=== PATIENT | female | born 1960 | race Caucasian/White ===

== ENCOUNTER 2016-07-16 18:01 | Emergency (ER) | payer OTHER ==
--- NOTE | 2016-07-16 18:04 | EDPHY ---
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 The patient was speaking and skiing at [place] with a group and began to feel lightheaded like she was going to have a syncopal event. Her dizziness improved when she put her head down, but would return when standing or sitting up. She is not on control or hormonal agents. No recent vomiting or diarrhea. No blood in her stool. No previous similar events. She denies chest pain or shortness of breath. No recent trauma, head or otherwise. She denies headache. She feels better now. REVIEW OF SYSTEMS: A ten point review of systems was performed and is negative with the exception of the items mentioned in the HPI. Source: Patient Exam Limitations: No limitations - Medical/Surgical History Hx Asthma: No Hx Chronic Respiratory Disease: No Hx Diabetes: No Hx Cardiac Disease: No Hx Renal Disease: No Hx Alcoholism: No Hx HIV/AIDS: No Other PMH: Negative except for ORIF leg fracture. 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 . - Physical Exam Exam: General Appearance: Alert. Vital signs reviewed. BP: 157/107 Eyes: Pupils equal and round, no conjunctival injection, no discharge. Anicteric. ENT, Mouth: Mucous membranes are moist, no oropharyngeal erythema or edema. Neck: No lymphadenopathy, supple. No carotid bruits. Respiratory: Lungs are clear to auscultation; no wheezes, rales, or rhonchi. Cardiovascular: Regular rate and rhythm; no murmur, rub, or gallop. Gastrointestinal: Abdomen is soft and nontender, no masses or organomegaly, bowel sounds normal. Skin: Warm and dry, no rashes on exposed skin, normal color. Back: Nontender to palpation over the thoracolumbar spine. No CVAT. Extremities: No lower extremity edema, no calf tenderness or swelling. Neurological: Alert and oriented. Moving all four extremities easily and equally. Cranial nerves II through XII are examined and are intact (visual acuity not tested). Strength is 5 over 5 bilaterally with testing of all major motor groups. Sensation is intact to light touch over all 4 extremities. Deep tendon reflexes are 2+ in the biceps and knees bilaterally. [id number] is performed accurately. Psychiatric: Normal affect. Constitutional: Initial Vital Signs Temperature (C) 36.9 C 07/16/16 18:11 Heart Rate 74 07/16/16 18:11 Respiratory Rate 16 07/16/16 18:11 Blood Pressure 173/106 H 07/16/16 18:11 O2 Sat (%) 94 07/16/16 18:11 O2 Delivery Mode Room Air Allergies/Adverse Reactions: No Known Allergies Allergy (Unverified 07/16/16 18:15) Medical Decision Making - Diagnostics EKG Interpretation: The 12 lead EKG was interpreted by myself. See hard copy and/or "tracemaster" electronic copy for interpretation: Sinus rhythm. No ischemic changes. Normal intervals. ED Course/Re-evaluation: Plan for EKG and orthostatic vitals. D-dimer and Troponin are pending. Healthy active 56 year old female with pre-syncope. She is hypertensive on arrival in ED, with no known history of hypertension. Normal neurologic exam. She feels better on arrival. Orthostatic VS are normal. CBC, chemistries, troponin, and d-dimer all normal (except for CO2 of 21). Repeat BP 148/102 and BP at discharge 148/86. No signs of end organ damage. She is advised to have her blood pressure checked by PCP at [place]. FU strongly encouraged. She no longer feels lightheaded and I feel that she can safely return home. Danger signs that should prompt immediate re-evaluation were reviewed. Differential Diagnosis: I considered a ddx of volume depletion/blood loss, vasovagal syncope/pre-syncope , cardiac arrhythmia, and altitude sickness (unlikely as she is acclimated to high altitude). - Data Points Laboratory Results: Laboratory Results 07/16/16 18:40 07/16/16 18:40 Departure - Departure Disposition: Home, Routine, Self-Care Clinical Impression: Lightheaded Condition: Good Instructions: Lightheadedness (ED) Additional Instructions: Your blood pressure today was elevated. Please followup with your primary care physician to have this rechecked. Drink plenty of fluids. Return to the Emergency Department if you develop chest pain, lightheadedness, severe nausea, or worsening symptoms. Referrals: CLARA LYNNE [Retired Resigned] - As per Instructions Report Scribed for: Jessica Rios Report Scribed by: Irais Rai Date of Report: 07/16/16 Time of Report: 18:14 Physician Review and Approval Statement: 07/16/16 18:04 Portions of this note were transcribed by the medical laboratory assistant. I, Dr. Jessica Rios, personally performed the history, physical exam, and medical decision- making; and confirmed the accuracy of the information in the transcribed note.
--- NOTE | 2016-07-16 18:46 | CPEKG ---
Heart Rate: 71 RR Interval: 845 P-R Interval: 164 QRSD Interval: 84 QT Interval: 404 QTC Interval: 439 P [place]: 35 QRS [place]: 37 T Wave [place]: 37 EKG Severity - NORMAL ECG - EKG Impression: SINUS RHYTHM Electronically Signed By: Jessica Rios 16-Jul-2016 23:40:59
[2016-07-16 18:58] LABS: % IMMATURE GRANULYOCYTES 0.2 % (0.0-1.1); ABSOLUTE IMMATURE GRANULOCYTES 0.02 10^3/uL (0.00-0.10); ADD DIFF? NO; ADD MORPH? NO; ADD SCAN? NO; ATYPICAL LYMPHOCYTE FLAG 0 (0-99); FRAGMENT RBC FLAG 0 (0-99); HEMATOCRIT 46.2 % (38.0-47.0); HEMOGLOBIN 15.8 g/dL (12.6-16.3); LEFT SHIFT FLG 0 (0-99); LIPEMIA HEMOLYSIS FLAG 90 (0-99); MEAN CELL HEMOGLOBIN 30.4 pg (27.9-34.1); MEAN CELL HEMOGLOBIN CONCENTR. 34.2 g/dL (32.4-36.7); MEAN CELL VOLUME 88.8 fL (81.5-99.8); MEAN PLATELET VOLUME 9.8 fL (8.7-11.7); PLATELET CLUMPS FLAG 0 (0-99); PLATELET COUNT 212 10^3/uL (150-400); RED CELL DISTRIBUTION WIDTH 13.1 % (11.5-15.2)
[2016-07-16 19:24] LABS: ANION GAP 13 mEq/L (8-16); CALCIUM 9.5 mg/dL (8.5-10.4); CARBON DIOXIDE 21 mEq/l (22-31); CHLORIDE 106 mEq/L (97-110); CREATININE 0.9 mg/dL (0.6-1.0); GLOMERULAR FILTRATION RATE > 60; GLUCOSE 90 mg/dL (70-100); SODIUM 140 mEq/L (134-144)
[2016-07-16 19:35] LABS: TROPONIN I < 0.012 ng/mL (0-0.034)
[2016-07-16 20:22] VITALS: O2SAT 93
[2016-07-16 21:07] VITALS: BP 141/86; PULSE 68; RESP 18; TEMP 97.9
== END 2016-07-16 21:08 | disposition home or self-care (01) ==
LOC: EDUNIT#
DX: R42 Dizziness and giddiness (principal)